=== PATIENT | male | born 1950 | race Caucasian/White ===

== ENCOUNTER 2016-06-18 23:38 | Observation (INO) | payer OTHER, MEDICARE ==
--- NOTE | 2016-06-18 23:50 | EDPHY ---
H & P Stated Complaint: abd cramping, constipated this am hx colon resection HPI/ROS: HPI CHIEF COMPLAINT: Abdominal pain, nausea, vomiting HISTORY OF PRESENT ILLNESS: This patient very pleasant 66-year-old male significant past medical history for colon resection, and perforated intestines from swallowing a piece of glass, remotely, presents emergency room with mid abdominal pain cramping and twisting in nature mid abdomen associated nausea vomiting. No diarrhea. States this started suddenly around 930 at night. Has persisted. Pain is currently 7/10. Mid abdomen. Nonradiating.. Tells me that he had frozen dinner tonight, he did have a normal bowel movement earlier today slightly constipated but no change in color or foul smell. No fever. The pain he tells me his mid abdomen nonradiating since 929. 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 Exam Constitutional triage nursing summary reviewed, vital signs reviewed, awake/ alert. Eyes normal conjunctivae and sclera, EOMI, PERRLA. HENT normal inspection, atraumatic, moist mucus membranes, no epistaxis, neck supple/ no meningismus, no raccoon eyes. Respiratory clear to auscultation bilaterally, normal breath sounds, no respiratory distress, no wheezing. Cardiovascular rate normal, regular rhythm, no murmur, no edema, distal pulses normal. Gastrointestinal soft, tender palpation mid abdomen, no rebound, no guarding, normal bowel sounds, no distension, no pulsatile mass. Genitourinary no CVA tenderness. Musculoskeletal no midline vertebral tenderness, full range of motion, no calf swelling, no tenderness of extremities, no meningismus, good pulses, neurovascularly intact. Skin pink, warm, & dry, no rash, skin atraumatic. Neurologic awake, alert and oriented x 3, AAOx3, moves all 4 extremities equally, motor intact, sensory intact, CN II-XII intact, normal cerebellar, normal vision, normal speech. Psychiatric normal mood/affect. Heme/Lymph/Immune no lymphadenopathy. Differential diagnosis includes but is not limited to and in no particular order : Bowel obstruction, appendicitis, gallbladder disease, diverticulitis, colitis , enteritis, perforated viscus, gastritis, GERD, esophagitis, urinary tract infection, pyelonephritis, kidney stones Medical Decision Making:Plan for this patient patient had an IV established will obtain blood work, patient be hydrated IV fluids nausea medicine and pain medicine. He will need a lactic acid abdominal blood work, CT scan abdomen pelvis with IV contrast rule out acute intra-abdominal pathology. Re-evaluation: CT scan of the abdomen pelvis with IV contrast. The results of the study are shows constipation, there is gallstones present possibly gallstone in the cystic duct, no pericholecystic fluid otherwise unremarkable CT scan no acute inflammatory process visualized The study was read by Dr. lopez. I viewed the images myself on the PACS system. EKG interpretation by me on record in [employer] system. Impression time of EKG 2:19 a.m., this is sinus rhythm rate of 66, nonspecific intraventricular conduction delay, LVH present, otherwise no acute ischemic change appreciated. Ultrasound of the abdomen right upper quadrant. The results of the study are shows multiple gallstones, there is a hydrops gallbladder, distended gallbladder 11 x 5 cm, there is stone appears to be in the neck of the gallbladder and cystic duct. There is no CBD dilatation. There is no pericystic fluid. I discussed the results of this study with the radiologist Dr. Lopez 0333: Re-evaluation patient is still having ongoing mid abdominal pain right upper quadrant abdominal pain I have given him another dose of Dilaudid. Most likely this is biliary colic causing his pain. I will consult General surgery for admission. 0343: Spoke with Dr. Thomas Recommends Admission. He will admit. Plan to see patient. IV Invanz Ordered. Source: Patient - Personal History Current Tetanus/Diphtheria Vaccine: Unsure Current Tetanus Diphtheria and Acellular Pertussis (TDAP): Unsure - Medical/Surgical History Hx Asthma: No Hx Chronic Respiratory Disease: No Hx Diabetes: No Hx Cardiac Disease: No Hx Renal Disease: No Hx Cirrhosis: No Hx Alcoholism: No Hx HIV/AIDS: No Hx Splenectomy or Spleen Trauma: No Other PMH: COLON RESECTION. L WRIST FX. TIA - Social History Smoking Status: Never smoked Constitutional: Initial Vital Signs Temperature (C) 36.4 C 06/18/16 23:43 Heart Rate 57 L 06/18/16 23:43 Respiratory Rate 19 06/18/16 23:43 Blood Pressure 143/94 H 06/18/16 23:43 O2 Sat (%) 97 06/18/16 23:43 O2 Delivery Mode Nasal Cannula O2 (L/minute) 2 Allergies/Adverse Reactions: No Allergies [NKDA] Allergy (Verified 04/13/15 01:20) CAT HAIR Allergy (Mild, Uncoded 04/13/15 01:20) Other-Enter Comments Home Medications: Medication Instructions Recorded Aspirin [Aspirin 325 mg (*)] 162.5 mg PO DAILY 09/07/14 Nebivolol HCl [Bystolic] 2.5 mg PO DAILY 09/07/14 Ascorbic Acid [Vitamin C 500 mg 1,000 mg PO DAILY 04/13/15 (*)] Calcium Carb W/Vit D [Calcium Carb 500 mg PO DAILY 04/13/15 W/Vit D 500/200 (*)] Glucosamine/Chondroitin 1 each PO DAILY 04/13/15 [Glucosamine/Chondroitin (*)] Tears/Hypromellose [Natural 2 drops EACHEYE DAILY 04/13/15 Balance] Medical Decision Making - Data Points Laboratory Results: Laboratory Results 06/19/16 00:25 06/19/16 00:25 06/19/16 06/19/16 06/19/16 03:20 02:10 02:10 WBC RBC Hgb Hct MCV MCH MCHC RDW Plt Count MPV Neut % (Auto) Lymph % (Auto) [place] % (Auto) Eos % (Auto) Baso % (Auto) Nucleat RBC Rel Count Absolute Neuts (auto) Absolute Lymphs (auto) Absolute Monos (auto) Absolute Eos (auto) Absolute Basos (auto) Absolute Nucleated RBC Immature Gran % Immature Gran # PT INR APTT VBG Lactic Acid 0.9 mmol/L D mmol/L (0.7-2.1) Sodium Potassium Chloride Carbon Dioxide Anion Gap BUN Creatinine Estimated GFR Glucose Calcium Total Bilirubin Conjugated Bilirubin Unconjugated Bilirubin AST ALT Alkaline Phosphatase Troponin I < 0.012 ng/mL ng/mL (0-0.034) Total Protein Albumin Lipase Urine Color YELLOW Urine Appearance CLEAR Urine pH 5.0 (5.0-7.5) Ur Specific [place] > 1.035 H (1.002-1.030) Urine Protein NEGATIVE (NEGATIVE) Urine Ketones NEGATIVE (NEGATIVE) Urine Blood NEGATIVE (NEGATIVE) Urine Nitrate NEGATIVE (NEGATIVE) Urine Bilirubin NEGATIVE (NEGATIVE) Urine Urobilinogen NEGATIVE EU EU (0.2-1.0) Ur Leukocyte Esterase 1+ H (NEGATIVE) Urine RBC Pending Urine WBC Pending Ur Epithelial Cells Pending Ur Culture Indicated? Pending Urine Glucose NEGATIVE (NEGATIVE) 06/19/16 06/19/16 06/19/16 00:25 00:25 00:25 WBC 9.89 10^3/uL H 10^3/uL (3.80-9.50) RBC 4.74 10^6/uL 10^6/uL (4.40-6.38) Hgb 14.9 g/dL g/dL (13.7-17.5) Hct 42.8 % % (40.0-51.0) MCV 90.3 fL fL (81.5-99.8) MCH 31.4 pg pg (27.9-34.1) MCHC 34.8 g/dL g/dL (32.4-36.7) RDW 12.7 % % (11.5-15.2) Plt Count 149 10^3/uL L 10^3/uL (150-400) MPV 11.3 fL fL (8.7-11.7) Neut % (Auto) 88.7 % H % (39.3-74.2) Lymph % (Auto) 5.9 % L % (15.0-45.0) [place] % (Auto) 4.0 % L % (4.5-13.0) Eos % (Auto) 0.8 % % (0.6-7.6) Baso % (Auto) 0.2 % L % (0.3-1.7) Nucleat RBC Rel Count 0.0 % % (0.0-0.2) Absolute Neuts (auto) 8.77 10^3/uL H 10^3/uL (1.70-6.50) Absolute Lymphs (auto) 0.58 10^3/uL L 10^3/uL (1.00-3.00) Absolute Monos (auto) 0.40 10^3/uL 10^3/uL (0.30-0.80) Absolute Eos (auto) 0.08 10^3/uL 10^3/uL (0.03-0.40) Absolute Basos (auto) 0.02 10^3/uL 10^3/uL (0.02-0.10) Absolute Nucleated RBC 0.00 10^3/uL 10^3/uL (0-0.01) Immature Gran % 0.4 % % (0.0-1.1) Immature Gran # 0.04 10^3/uL 10^3/uL (0.00-0.10) PT 13.2 SEC SEC (12.0-15.0) INR 1.01 (0.83-1.16) APTT 26.0 SEC SEC (23.0-38.0) VBG Lactic Acid Sodium 146 mEq/L H mEq/L (134-144) Potassium 3.9 mEq/L mEq/L (3.5-5.2) Chloride 107 mEq/L mEq/L (97-110) Carbon Dioxide 28 mEq/l mEq/l (22-31) Anion Gap 11 mEq/L mEq/L (8-16) BUN 29 mg/dL H mg/dL (7-23) Creatinine 0.9 mg/dL mg/dL (0.7-1.3) Estimated GFR > 60 Glucose 148 mg/dL H mg/dL (70-100) Calcium 9.2 mg/dL mg/dL (8.5-10.4) Total Bilirubin 0.5 mg/dL mg/dL (0.1-1.4) Conjugated Bilirubin 0.4 mg/dL mg/dL (0.0-0.5) Unconjugated Bilirubin 0.1 mg/dL mg/dL (0.0-1.1) AST 27 IU/L IU/L (17-59) ALT 34 IU/L IU/L (21-72) Alkaline Phosphatase 60 IU/L IU/L (38-126) Troponin I Total Protein 6.6 g/dL g/dL (6.3-8.2) Albumin 4.2 g/dL g/dL (3.5-5.0) Lipase 195.0 IU/L IU/L (23-300) Urine Color Urine Appearance Urine pH Ur Specific [place] Urine Protein Urine Ketones Urine Blood Urine Nitrate Urine Bilirubin Urine Urobilinogen Ur Leukocyte Esterase Urine RBC Urine WBC Ur Epithelial Cells Ur Culture Indicated? Urine Glucose 06/18/16 06/18/16 06/18/16 23:59 23:59 23:59 WBC REJ RBC REJ Hgb REJ Hct REJ MCV REJ MCH REJ MCHC REJ RDW REJ Plt Count REJ MPV REJ Neut % (Auto) REJ Lymph % (Auto) REJ [place] % (Auto) REJ Eos % (Auto) REJ Baso % (Auto) REJ Nucleat RBC Rel Count REJ Absolute Neuts (auto) REJ Absolute Lymphs (auto) REJ Absolute Monos (auto) REJ Absolute Eos (auto) REJ Absolute Basos (auto) REJ Absolute Nucleated RBC REJ Immature Gran % REJ Immature Gran # REJ PT REJ INR REJ APTT REJ VBG Lactic Acid Sodium REJ Potassium REJ Chloride REJ Carbon Dioxide REJ Anion Gap REJ BUN REJ Creatinine REJ Estimated GFR REJ Glucose REJ Calcium REJ Total Bilirubin REJ Conjugated Bilirubin REJ Unconjugated Bilirubin REJ AST REJ ALT REJ Alkaline Phosphatase REJ Troponin I Total Protein REJ Albumin REJ Lipase REJ Urine Color Urine Appearance Urine pH Ur Specific [place] Urine Protein Urine Ketones Urine Blood Urine Nitrate Urine Bilirubin Urine Urobilinogen Ur Leukocyte Esterase Urine RBC Urine WBC Ur Epithelial Cells Ur Culture Indicated? Urine Glucose 06/18/16 23:59 WBC RBC Hgb Hct MCV MCH MCHC RDW Plt Count MPV Neut % (Auto) Lymph % (Auto) [place] % (Auto) Eos % (Auto) Baso % (Auto) Nucleat RBC Rel Count Absolute Neuts (auto) Absolute Lymphs (auto) Absolute Monos (auto) Absolute Eos (auto) Absolute Basos (auto) Absolute Nucleated RBC Immature Gran % Immature Gran # PT INR APTT VBG Lactic Acid 2.2 mmol/L H mmol/L (0.7-2.1) Sodium Potassium Chloride Carbon Dioxide Anion Gap BUN Creatinine Estimated GFR Glucose Calcium Total Bilirubin Conjugated Bilirubin Unconjugated Bilirubin AST ALT Alkaline Phosphatase Troponin I Total Protein Albumin Lipase Urine Color Urine Appearance Urine pH Ur Specific [place] Urine Protein Urine Ketones Urine Blood Urine Nitrate Urine Bilirubin Urine Urobilinogen Ur Leukocyte Esterase Urine RBC Urine WBC Ur Epithelial Cells Ur Culture Indicated? Urine Glucose Medications Given: Discontinued Medications Hydromorphone HCl (Dilaudid) 0.5 mg IVP EDNOW ONE Stop: 06/18/16 23:52 Last Admin: 06/19/16 00:27 Dose: 0.5 mg Hydromorphone HCl (Dilaudid) 1 mg IVP EDNOW ONE Stop: 06/19/16 01:22 Last Admin: 06/19/16 01:25 Dose: 1 mg Hydromorphone HCl (Dilaudid) 1 mg IVP EDNOW ONE Stop: 06/19/16 03:21 Last Admin: 06/19/16 03:28 Dose: 1 mg Sodium Chloride (Ns) 1,000 mls @ 0 mls/hr IV ONCE ONE PRN Reason: Wide Open Stop: 06/18/16 23:52 Last Admin: 06/19/16 00:27 Dose: 1,000 mls Ondansetron HCl (Zofran) 4 mg IVP EDNOW ONE Stop: 06/18/16 23:52 Last Admin: 06/19/16 00:28 Dose: 4 mg Departure - Departure Disposition: [facility] Acute Clinical Impression: Gallstones, Biliary colic Abdominal pain Qualifiers: Abdominal location: epigastric Qualified Code(s): R10.13 - Epigastric pain Condition: Fair Referrals: Mark Gore MD [Primary Care Provider] - As per Instructions
[2016-06-18] MEDS ORDERED: HYDROmorphONE/DILAUDID 1 MG/ML SYR IVP ONE (23:51)
[2016-06-18] MEDS ORDERED: ONDANSETRON 4 MG/2 ML VIAL IVP ONE (23:51)
[2016-06-18] MEDS ORDERED: NS 1,000 ML IV ONE (23:51)
[2016-06-19] MEDS ORDERED: IOPAMIDOL (ISOVUE-300) 100 ML BTL IV ONE (00:27)
[2016-06-19 00:54] LABS: % IMMATURE GRANULYOCYTES 0.4 % (0.0-1.1); ABSOLUTE IMMATURE GRANULOCYTES 0.04 10^3/uL (0.00-0.10); ADD DIFF? NO; ADD MORPH? NO; ADD SCAN? NO; ATYPICAL LYMPHOCYTE FLAG 0 (0-99); FRAGMENT RBC FLAG 0 (0-99); HEMATOCRIT 42.8 % (40.0-51.0); HEMOGLOBIN 14.9 g/dL (13.7-17.5); LEFT SHIFT FLG 0 (0-99); LIPEMIA HEMOLYSIS FLAG 90 (0-99); MEAN CELL HEMOGLOBIN 31.4 pg (27.9-34.1); MEAN CELL HEMOGLOBIN CONCENTR. 34.8 g/dL (32.4-36.7); MEAN CELL VOLUME 90.3 fL (81.5-99.8); MEAN PLATELET VOLUME 11.3 fL (8.7-11.7); PLATELET CLUMPS FLAG 0 (0-99); PLATELET COUNT 149 10^3/uL (150-400); RED BLOOD CELL COUNT 4.74 10^6/uL (4.40-6.38); RED CELL DISTRIBUTION WIDTH 12.7 % (11.5-15.2)
[2016-06-19 00:56] LABS: ALANINE AMINOTRANSFERASE 34 IU/L (21-72); ALBUMIN 4.2 g/dL (3.5-5.0); ALKALINE PHOSPHATASE 60 IU/L (38-126); ANION GAP 11 mEq/L (8-16); ASPARTATE AMINOTRANSFERASE 27 IU/L (17-59); BILIRUBIN,TOTAL 0.5 mg/dL (0.1-1.4); BILIRUBIN-CONJUGATED 0.4 mg/dL (0.0-0.5); BILIRUBIN-UNCONJUGATED 0.1 mg/dL (0.0-1.1); CALCIUM 9.2 mg/dL (8.5-10.4); CARBON DIOXIDE 28 mEq/l (22-31); CHLORIDE 107 mEq/L (97-110); CREATININE 0.9 mg/dL (0.7-1.3); GLOMERULAR FILTRATION RATE > 60; GLUCOSE 148 mg/dL (70-100); POTASSIUM 3.9 mEq/L (3.5-5.2); SODIUM 146 mEq/L (134-144); TOTAL PROTEIN 6.6 g/dL (6.3-8.2)
[2016-06-19 00:58] LABS: INR 1.01 (0.83-1.16); PROTIME(PATIENT) 13.2 SEC (12.0-15.0)
[2016-06-19] MEDS ORDERED: HYDROmorphONE/DILAUDID 1 MG/ML SYR IVP ONE ×2 (01:21→03:20)
--- NOTE | 2016-06-19 02:20 | CPEKG ---
Heart Rate: 66 RR Interval: 909 P-R Interval: 180 QRSD Interval: 112 QT Interval: 416 QTC Interval: 436 P [place]: 36 QRS [place]: 2 T Wave [place]: -21 EKG Severity - ABNORMAL ECG - EKG Impression: SINUS RHYTHM EKG Impression: NONSPECIFIC INTRAVENTRICULAR CONDUCTION DELAY EKG Impression: PROBABLE LEFT VENTRICULAR HYPERTROPHY Electronically Signed By: Dominic Portillo 20-Jun-2016 18:12:46
[2016-06-19] MEDS ORDERED: ERTAPENEM 1 GM in NS 100 ML IV ONE (03:32)
[2016-06-19 03:40] LABS: COLOR YELLOW; LEUKOCYTE ESTERASE,URINE 1+ (NEGATIVE); NITRITE,URINE NEGATIVE (NEGATIVE)
[2016-06-19] MEDS ORDERED: ONDANSETRON 4 MG/2 ML VIAL IVP PRN (04:21)
[2016-06-19] MEDS ORDERED: ceFAZolin 2 GM/DEXTROSE 100 ML IV ONE ×2 (04:21→12:00)
[2016-06-19] MEDS ORDERED: D5W 1/2 NS W/ 20 KCl/L 1,000 ML IV SCH (04:30)
--- NOTE | 2016-06-19 04:48 | GHP ---
[f rep st] PREOP HISTORY AND PHYSICAL DATE OF ADMISSION: 06/19/2016 CHIEF COMPLAINT: Abdominal pain. HISTORY OF PRESENT ILLNESS: This is a 66-year-old male who reports to the emergency department with fairly excruciating abdominal pain starting at around 9:30. He had a [employer] for dinner, shortly thereafter began to have unrelenting abdominal pain. Here in the emergency department, he describes the pain is periumbilical in nature, radiating somewhat to the right upper quadrant. He associates nausea without vomiting. No fevers or chills. The pain has been unrelenting. He has received multiple rounds of IV Dilaudid here in the ED without resolution of the pain. He had never had pain like this before, although he says his physician was working him up for a "gallbladder issue" in the past. PAST MEDICAL HISTORY: Hypertension, hypoglycemia, and a TIA. PAST SURGICAL HISTORY: Left wrist ORIF and an exploratory laparotomy done in the , where a portion of what appears to be his distal small bowel and proximal large bowel was resected secondary to perforation after swallowing glass. FAMILY HISTORY: Noncontributory. 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 Social alcohol. Denies illicit drug use. MEDICATIONS: Reviewed, no blood thinners. REVIEW OF SYSTEMS: A full 10-point review was performed and, unless explicitly stated, is otherwise negative. PHYSICAL EXAMINATION: VITAL SIGNS: Temperature 36.8, blood pressure 115/70, heart rate 69, and he is 94% on room air. GENERAL: He is alert and oriented, in no acute distress. CV: He has a regular rate and rhythm without any murmurs. LUNGS: Clear to auscultation bilaterally. ABDOMEN: Soft, nondistended, relatively nontender to palpation. Negative Vazquez sign. Right paramedian scar consistent with previous surgical history. EXTREMITIES: Warm and well perfused. LABORATORY DATA: White blood cell count 9000, although he does have a left shift. Liver function enzymes are within normal limits. Lipase is normal at 190. Ultrasound shows distended gallbladder with what appears to be a stone impacted in the neck. CT scan of the abdomen and pelvis is negative for any acute findings. ASSESSMENT AND PLAN: A 66-year-old male with biliary colic versus cholecystitis. Although the patient does not have classical gallbladder symptoms, I do feel that his pain is likely related to his gallbladder given the lack of any other etiology. It does appear to be related to fatty foods, and I do feel that he would benefit from cholecystectomy. In addition, the patient had a HIDA scan in early 2015 which did show delayed emptying of the gallbladder which can be indicative of chronic cholecystitis and I feel that this bolsters the case that he does indeed have a gallbladder problem. I have discussed the risks, benefits, and alternatives with him. We will plan to proceed with laparoscopic cholecystectomy as time permits. /[id number]/MODL MTDD
[2016-06-19] MEDS: HYDROmorphONE/DILAUDID 1 MG/ML SYR IVP PRN ×3 (05:13→23:19)
[2016-06-19] MEDS ORDERED: SKIN ADHESIVE (DERMABOND) 1 EACH TP ONE (09:13)
[2016-06-19] MEDS ORDERED: BUPIVACAINE/EPI 0.25% 30 ML SDV ONE (09:13)
[2016-06-19] MEDS ORDERED: IOPAMIDOL (ISOVUE-370) 150 ML BTL IV ONE (09:14)
[2016-06-19] MEDS ORDERED: IOPAMIDOL (ISOVUE-300) 150 ML BTL IV ONE (09:34)
[2016-06-19] MEDS ORDERED: ONDANSETRON 4 MG/2 ML VIAL ONE (11:15)
[2016-06-19] MEDS ORDERED: DEXAMETHASONE 4 MG/ML VIAL ONE (11:15)
[2016-06-19] MEDS ORDERED: fentaNYL 250 MCG/5 ML INJ ONE (11:15)
[2016-06-19] MEDS ORDERED: PROPOFOL 200 MG/20 ML VIAL ONE (11:15)
[2016-06-19] MEDS ORDERED: MIDAZOLAM 2 MG/2 ML VIAL ONE (11:17)
[2016-06-19] MEDS ORDERED: IOPAMIDOL (ISOVUE-M 300) 15 ML VIAL IV ONE (11:57)
[2016-06-19] MEDS ORDERED: MEPERIDINE 25 MG/ML SYR ONE (13:02)
[2016-06-19] MEDS ORDERED: fentaNYL 100 MCG/2 ML INJ ONE (13:24)
[2016-06-19] MEDS ORDERED: HYDROmorphONE/DILAUDID 1 MG/ML SYR ONE (13:24)
--- NOTE | 2016-06-19 14:27 | POSTOPPROG ---
Post Op Note Date of Operation: 06/19/16 Surgeon: Navid Thomas Supervisor Case Loading: Roddy Anesthesiologist: Junito Anesthesia: GET(General Endotracheal) Pre-op Diagnosis: cholecystitis Post-op Diagnosis: same Procedure: lap masood Findings: critical view, many adhesions Inf/Abcess present in the surg proc area at time of surgery?: No EBL: Minimal Specimen(s): gallbag
--- NOTE | 2016-06-19 15:09 | GOP ---
[f rep st] OPERATIVE REPORT DATE OF OPERATION: 06/19/2016 SURGEON: Navid Thomas MD STAMPER BLOCKER: Miladys Pereyra PA-C. ANESTHESIA: General endotracheal per Dr. Wild PREOPERATIVE DIAGNOSIS: Acute cholecystitis. POSTOPERATIVE DIAGNOSIS: [id number] cholecystitis. PROCEDURE PERFORMED: Laparoscopic cholecystectomy. FINDINGS: Acutely indurated gallbladder wall with hydrops, dense intraabdominal adhesions from prev ious surgery and current active infection and inflammation. Critical view was obtained. SPECIMENS: Gallbladder. ESTIMATED BLOOD LOSS: 10 cc. DESCRIPTION OF PROCEDURE: The patient was greeted in the preoperative suite. Once again, risks, be nefits, and alternatives were discussed. Consent was signed. He was then brought back to the opera tive suite, placed on the OR table in supine position. After all anesthesia machines were on and fu nctioning, World Health Organization time-out was performed. Antibiotics were given on-call to the operating room. After successful induction of general anesthesia, the patient's abdomen was widely prepped and draped in typical sterile fashion. I initially attempted to enter using the Veress need le in the left upper quadrant and after 1 stick was unsuccessful. I then elected to make a cut down in the infraumbilical fashion, carried this down to the fascia and was successful in using the Gwendolyn ss needle to achieve pneumoperitoneum to 15 mmHg, which was well tolerated by the patient. Through this incision I inserted a 12 mm port. After inserting it into that into abdomen, he had a signific ant amount of adhesions from his previous para midline incision. I inserted 2 ports at this point i n time, 1 in the right upper quadrant and 1 in the left upper quadrant and successfully lysed these adhesions. I then placed the remainder of my laparoscopic cholecystectomy port, 1 in the subxiphoid and an additional 1 in the right upper quadrant. The gallbladder proper was tense and hydropic, wa s able to successfully retract it and had to aspirate its contents. After successful aspiration, I was able to successfully retract the gallbladder over the dome of the liver. I turned my attention toward the infundibulum where a combination of electrocautery and blunt dissection identified 2 and only 2 structures, leading toward the gallbladder. The 1st appeared to be the cystic artery. I ciara umer clipped this proximally, 1 distally and clipped it. I then identified the cystic duct, skeleton ized it. And after my critical view was obtained, clipped and divided it in the same fashion. Once this was done, I turned my attention towards taking the gallbladder off the liver bed. This was do ne with electrocautery. After this was finished, I placed it in an EndoCatch bag and removed it. I then turned my attention to his right upper quadrant where I irrigated with 1 L of warm normal sali ne and removed all blood and bile from the right upper quadrant. Once this was done, I inspected th e liver bed which was hemostatic and inspected my clips on both the duct and the artery, which again were in appropriate position. It should be noted that the duct was somewhat edematous and I was un able to successfully clip it proximally and did use a PDS Endoloop for proximal ligation. In order to ensure hemostasis in the liver bed, I used an Paola to help obtain hemostasis which was noted to be excellent. I then instilled anesthetic into all port sites under direct visualization which wer e then removed. Pneumoperitoneum was evacuated. I then closed my midline incision at the umbilical port site with a running 0 Vicryl suture. The skin was then closed with running 4-0 Monocryl, over which Dermabond was placed. The patient tolerated the procedure well with no intraoperative compli cations. He was extubated and taken to the PACU in satisfactory condition. DRAINS: None. COUNTS: All counts reported as correct x2. /[id number]/MODL
[2016-06-19] MEDS: OXYCODONE/APAP 5/325 TAB PO PRN ×2 (18:22→20:54)
[2016-06-20 08:06] VITALS: BP 116/70; PULSE 79; RESP 14; TEMP 98.8; O2SAT 91
== END 2016-06-20 10:12 | disposition home or self-care (01) ==
LOC: INTOOBSV 06-19 03:42 → F3E 06-19 05:30
PROVIDERS: ADMIT Surgery; ATTEND Surgery
PROC: 0FT44ZZ Resection of Gallbladder, Percutaneous Endoscopic Approach (ICD-10-PCS; principal; 2016-06-19 11:00)
DX: K80.60 Calculus of gallbladder and bile duct with cholecystitis, unspecified, without obstruction (principal); I10 Essential (primary) hypertension; K59.00 Constipation, unspecified
CPT/HCPCS: 47562; 74177; 76705; 88304; 93005; 96361; 96365; 96375; 96376; 99285; G0378; J0690; J1100; J1170; J1335; J2250; J2405; J2704; J3010; Q9967

== ENCOUNTER → 2017-11-21 | Outpatient (CLI) | payer OTHER, MEDICARE ==
[~2017-11-21] MED LIST: GADOBUTROL 10 ML VIAL IVP ONE
== END ==
LOC: FIMAGING 07:31
PROVIDERS: ATTEND Urology
DX: N42.89 Other specified disorders of prostate (principal); M85.89 Other specified disorders of bone density and structure, multiple sites
CPT/HCPCS: 72197; 76377; A9585; 82565-PO

== ENCOUNTER → 2017-12-06 | Outpatient (CLI) | payer OTHER, MEDICARE | LOC: FIMAGING 08:22 | PROVIDERS: ATTEND Urology | DX: C61 Malignant neoplasm of prostate (principal) | CPT/HCPCS: 78306; A9503 ==

== ENCOUNTER 2018-03-28 22:07 | Emergency (ER) | payer OTHER, MEDICARE ==
--- NOTE | 2018-03-28 22:19 | EDPHY ---
H & P Stated Complaint: HTN, nausea, intermitent SOB Time Seen by Provider: 03/28/18 22:19 - Personal History Current Tetanus/Diphtheria Vaccine: Yes Current Tetanus Diphtheria and Acellular Pertussis (TDAP): Yes - Medical/Surgical History Hx Asthma: No Hx Chronic Respiratory Disease: No Hx Diabetes: No Hx Cardiac Disease: No Hx Renal Disease: No Hx Cirrhosis: No Hx Alcoholism: No Hx HIV/AIDS: No Hx Splenectomy or Spleen Trauma: No Other PMH: COLON RESECTION. L WRIST FX. TIA - Social History Smoking Status: Never smoked Constitutional: Initial Vital Signs Temperature (C) 36.6 C 03/28/18 22:13 Heart Rate 66 03/28/18 22:13 Respiratory Rate 20 03/28/18 22:13 Blood Pressure 168/76 H 03/28/18 22:13 O2 Sat (%) 97 03/28/18 22:13 O2 Delivery Mode Room Air Allergies/Adverse Reactions: No Allergies [NKDA] Allergy (Verified 04/13/15 01:20) CAT HAIR Allergy (Mild, Uncoded 04/13/15 01:20) Other-Enter Comments Home Medications: Medication Instructions Recorded Nebivolol HCl [Bystolic] 2.5 mg PO DAILY 09/07/14 Ascorbic Acid [Vitamin C 500 mg 1,000 mg PO DAILY 04/13/15 (*)] Calcium Carb W/Vit D [Calcium Carb 500 mg PO DAILY 04/13/15 W/Vit D 500/200 (*)] Glucosamine/Chondroitin 1 each PO DAILY 04/13/15 [Glucosamine/Chondroitin (*)] Aspirin EC [Aspirin EC 81 mg (*)] 81 mg PO DAILY 06/19/16 Nebivolol HCl [Bystolic 5 mg (*)] 5 mg PO DAILY #30 tab 03/28/18 Medical Decision Making ED Course/Re-evaluation: CHIEF COMPLAINT: High blood pressure HISTORY OF PRESENT ILLNESS: The patient is a 68 y/o male with a history of hypertension, a TIA, and prostate cancer complaining of high blood pressure, nausea, and vomiting today. In December he was diagnosed with prostate cancer and was given a shot to block testosterone. Since the shot he has felt more fatigued and has had nausea. He recently saw Dr. 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 Today he noticed that he was more tired than coreen and became concerned about his blood pressure. When he took his blood pressure tonight he noticed a systolic of 200. The blood pressure eventually dropped to 165/90 and 150/75 prior to arriving to the emergency department. No fever, headache, chest pressure, palpitations, shortness of breath, abdominal pain, urinary or bowel complaints, numbness, paresthesias. REVIEW OF SYSTEMS: A comprehensive 10 system review of systems is otherwise negative aside from elements mentioned in the history of present illness and medical decision making. PHYSICAL EXAM: HR, BP, O2 Sat, RR. Temp noted General Appearance: Alert, well hydrated, appropriate, and non-toxic appearing. Head: Atraumatic without scalp tenderness or obvious injury Eyes: Pupils equal, round, reactive to light and accommodation, EOMI, no trauma , no injection. Ears: Clear bilaterally, no perforation, normal landmarks Nose: Atraumatic, no rhinorrhea, clear. Throat: There is no erythema or exudates, no lesions, normal tonsils, mucus membranes moist. Neck: Supple, 2+ carotid upstroke, nontender, no lymphadenopathy. Respiratory: No retractions, no distress, no wheezes, and no accessory muscle use. Lungs are clear to auscultation bilaterally. Cardiovascular: Regular rate and rhythm, no murmurs, rubs, or gallops. Bilateral carotid, radial, dorsalis pedis, and posterior tibial pulses intact. Good capillary refill all extremities. Gastrointestinal: Abdomen is soft, nontender, non-distended, no masses, no rebound, no guarding, no peritoneal signs. Musculoskeletal: Normal active ROM of all extremities, atraumatic. Neurological: Alert, appropriate, and interactive. The patient has normal DTRs and non-focal cranial nerves, motor, sensory, and cerebellar exam. Skin: No rashes, good turgor, no nodules on palpation. Past medical history: Prostate cancer, hypertension, heart murmur, TIA Past surgical history: Denies Family history: Denies Social history: Lives in [place], , employed DIAGNOSTICS/PROCEDURES/CRITICAL CARE TIME: EKG: The 12 lead EKG was interpreted by myself as sinus rhythm with a rate of 63. See hard copy and/or "tracemaster" electronic copy for interpretation. DIFFERENTIAL DIAGNOSIS: The differential diagnosis for the patient's hypertension included but was not limited to essential hypertension, TIA, myocardial ischemia, pulmonary embolus, chest wall pain, pleural inflammation, and pulmonary infectious causes. MEDICAL DECISION MAKING: The patient is a 68 y/o male with a history of hypertension, a TIA, and prostate cancer complaining of high blood pressure, nausea, and vomiting onset after receiving a shot that blocks his testosterone. He has a normal physical exam. Labs and EKG ordered. [id number]: I interpreted patient's EKG as sinus rhythm with a rate of 63. Reassessed patient and discussed laboratory and EKG findings. He is not in a hypertensive emergency. I have advised him to take 15mg Bystolic daily. I have also advised him to follow up with his PCP. Return precautions provided; patient is comfortable with this plan. Departure - Departure Disposition: Home, Routine, Self-Care Clinical Impression: Hypertension Qualifiers: Hypertension type: unspecified Qualified Code(s): I10 - Essential (primary) hypertension Condition: Good Instructions: Hypertension (ED) Additional Instructions: 1. Follow-up with your primary doctor within 72 hours. 2. Return to the Emergency Department for fever, chest pain, shortness of breath , increasing pain or other worsening of condition. 3. Take 15mg Bystolic daily. Referrals: Mark Gore MD [Primary Care Provider] - As per Instructions Prescriptions: Nebivolol HCl [Bystolic 5 mg (*)] 5 mg PO DAILY #30 tab Report Scribed for: Jayden Ely Report Scribed by: Lyla Bettencourt Date of Report: 03/28/18 Time of Report: 22:20
--- NOTE | 2018-03-28 22:45 | CPEKG ---
Test Reason : OPEN Blood Pressure : / mmHG Vent. Rate : 063 BPM Atrial Rate : 062 BPM P-R Int : 178 ms QRS Dur : 121 ms QT Int : 423 ms P-R-T Axes : 050 016 001 degrees QTc Int : 434 ms Sinus rhythm Probable left atrial enlargement Nonspecific intraventricular conduction delay Borderline T abnormalities, inferior leads Confirmed by Jayden Ely ([id number]) on 03/28/2018 10:45:05 PM Referred By: Confirmed By:Jayden Ely
[2018-03-28 23:26] VITALS: BP 137/72
== END 2018-03-28 23:26 | disposition home or self-care (01) ==
DX: I10 Essential (primary) hypertension (principal); R11.2 Nausea with vomiting, unspecified; R06.02 Shortness of breath
CPT/HCPCS: 82435-PO; 82565-PO; 82947-PO; 84132-PO; 84295-PO; 84484-PO; 84520-PO; 85014-PO

== ENCOUNTER → 2018-04-10 | Outpatient (CLI) | payer OTHER, MEDICARE | LOC: BHFA 14:00 | PROVIDERS: ATTEND Internal Medicine Cardiovascular Disease | DX: R06.02 Shortness of breath (principal); I47.1 Supraventricular tachycardia ==

== ENCOUNTER → 2018-06-23 | Outpatient (CLI) | payer OTHER, MEDICARE | LOC: BHFA 08:30 | PROVIDERS: ATTEND Internal Medicine Cardiovascular Disease | DX: R07.9 Chest pain, unspecified (principal); R94.39 Abnormal result of other cardiovascular function study | CPT/HCPCS: 78452; 93017; A9500 ==